=== PATIENT | male | born 1985 | race Caucasian/White ===

== ENCOUNTER 2023-08-28 14:36 | Emergency (ER) | payer OTHER ==
[~2023-08-28] VITALS: Ht 188 cm; Wt 108.9 kg
[2023-08-28] MEDS ORDERED: KETOROLAC TROMETHAMINE INJ 30 MG/ML VIAL ONE (15:13)
[2023-08-28] MEDS: KETOROLAC TROMETHAMINE INJ 60 MG/2 ML VIAL IM ONE (15:20)
[2023-08-28 15:22] VITALS: BP 131/77; TEMP 98.7; O2SAT 100
== END 2023-08-28 15:23 | disposition home or self-care (01) ==
LOC: ER 14:40
DX: R51.9 Headache, unspecified (principal); E10.8 Type 1 diabetes mellitus with unspecified complications; Z60.2 Problems related to living alone
CPT/HCPCS: 99283; 96372; J1885